=== PATIENT | male | born 1995 | race African-American/Black ===

== ENCOUNTER 2018-09-21 00:10 | Emergency (ER) | payer MEDICAID ==
[~2018-09-21] VITALS: Ht 167.6 cm; Wt 83.0 kg
[2018-09-21 00:15] VITALS: BP 144/82
--- NOTE | 2018-09-21 00:27 | PHYS DOC ---
Adult General Chief Complaint Chief Complaint: OSTOMY PROBLEM HPI HPI Patient is a 23 year old male that presents to the ER stating that he is out of his ostomy bags. The patient states that he does not have a primary care doctor and so he is tried obtaining one is not appointment to 28 September. The patient was getting his prescription the general surgeon who performed the surgery however she states that she is no longer and right scripts as she is his been giving him samples. She has to told him to go the ER to get prescription. Denies any other complaints at this time. Review of Systems Review of Systems Constitutional: Denies fever or chills [] Eyes: Denies change in visual acuity, redness, or eye pain [] HENT: Denies nasal congestion or sore throat [] Respiratory: Denies cough or shortness of breath [] Cardiovascular: No additional information not addressed in HPI [] GI: Denies abdominal pain, nausea, vomiting, bloody stools or diarrhea [] : Denies dysuria or hematuria [] Musculoskeletal: Denies back pain or joint pain [] Integument: Denies rash or skin lesions [] Neurologic: Denies headache, focal weakness or sensory changes [] Endocrine: Denies polyuria or polydipsia [] Complete systems were reviewed and found to be within normal limits, except as documented in this note. Physical Exam Physical Exam Constitutional: Well developed, well nourished, no acute distress, non-toxic appearance. [] HENT: Normocephalic, atraumatic, bilateral external ears normal, oropharynx moist, no oral exudates, nose normal. [] Eyes: PERRLA, EOMI, conjunctiva normal, no discharge. [] Neck: Normal range of motion, no tenderness, supple, no stridor. [] Abdomen: Bowel sounds normal, soft, no tenderness, no masses, no pulsatile masses, has ostomy bag. Skin: Warm, dry, no erythema, no rash. [] Back: No tenderness, no CVA tenderness. [] Extremities: No tenderness, no cyanosis, no clubbing, ROM intact, no edema. [] Neurologic: Alert and oriented X 3, normal motor function, normal sensory function, no focal deficits noted. [] Psychologic: Affect normal, judgement normal, mood normal. [] EKG EKG [] Radiology/Procedures Radiology/Procedures [] Course & Med Decision Making Course & Med Decision Making Pertinent Labs and Imaging studies reviewed. (See chart for details) Discussed with patient that he needs to go to primary care doctor and ask the surgeon to write for a week until he can get in. Will change ostomy bag while here. Deoon Disclaimer Deoon Disclaimer This electronic medical record was generated, in whole or in part, using a voice recognition dictation system. Departure Departure Impression: Primary Impression: Complication of ostomy Disposition: HOME, SELF-CARE Condition: STABLE Patient Instructions: Ostomy Support Information Additional Instructions: Thank you for visiting [facility]. We appreciate you trusting us with your care. If any additional problems come up don't hesitate to return to visit us. Please follow up with your primary care provider so they can plan additional care if needed and know about the problem that you had. If symptoms worsen come back to the Emergency Department. Any concerning symptoms that start such as chest pain, shortness of air, weakness or numbness on one side of the body, running high fevers or any other concerning symptoms return to the ER. LALA REDDY APRN Sep 21, 2018 00:27
== END 2018-09-21 00:32 | disposition home or self-care (01) ==
LOC: ER 00:10
DX: K94.03 Colostomy malfunction (principal); Y83.8 Other surgical procedures as the cause of abnormal reaction of the patient, or of later complication, without mention of misadventure at the time of the procedure
CPT/HCPCS: 99281